=== PATIENT | female | born 1950 | race Caucasian/White ===

== ENCOUNTER 2017-09-09 08:46 | Inpatient (IN) | payer MEDICARE, MEDICAID ==
[2017-09-03 14:35] LABS: CLARITY,URINE CLEAR (Clear); COLOR,URINE YELLOW (Yellow); GLUCOSE, URINE NEGATIVE (Neg); KETONES,URINE NEGATIVE (Neg); LEUKOCYTE ESTERASE ,URINE NEGATIVE (Neg); NITRITES, URINE NEGATIVE (Neg); OCCULT BLOOD,URINE NEGATIVE (Neg); PROTEIN,URINE NEGATIVE (Neg); UROBILINOGEN,URINE 0.2 E.U/dL (0.2-1.0)
[2017-09-03 14:36] LABS: UA COLLECTION TYPE CLN CATCH MIDSTREAM
[2017-09-03 14:52] LABS: ALBUMIN 3.7 G/DL (3.4-5.0); ALKALINE PHOSPHATASE 123 IU/L (46-116); BLOOD UREA NITROGEN 25 MG/DL (7-18); BUN/CREATININE RATIO 31.3 (6.6-38.0); CALCIUM 9.1 MG/DL (8.5-10.1); CHLORIDE 107 MMOL/L (99-107); PRE OP ALT 40 U/L (30-65); PRE OP ANION GAP 4 (8-16); PRE OP AST 30 U/L (10-37); PRE OP BILIRUB, TOTAL 0.4 MG/DL (0.0-1.0); PRE OP GLUCOSE 80 MG/DL (70-104); PRE OP POTASSIUM 3.9 MMOL/L (3.4-5.1); PRE OP SODIUM 143 MMOL/L (135-145); TOTAL CARBON DIOXIDE 31.9 MMOL/L (24-32); TOTAL PROTEIN 7.3 G/DL (6.4-8.2); eGFR 72 ML/MIN
[2017-09-03 15:01] LABS: MONOCYTES # (AUTO) 0.6 X10'3 (0-0.9); RED BLOOD COUNT 4.51 X10'6 (4.20-5.60)
[2017-09-03 15:05] LABS: BASOPHILS # (AUTO) 0.2 X10'3 (0-0.2); BASOPHILS % (AUTO) 2.8 % (0-1); EOSINOPHILS # (AUTO) 0.2 X10'3 (0-0.9); EOSINOPHILS % (AUTO) 2.3 % (0-6); LYMPHOCYTES # (AUTO) 2.7 X10'3 (1.1-4.8); LYMPHOCYTES % (AUTO) 39.1 % (21-51); MEAN CORPUSCULAR HEMOGLOBIN 29.7 PG (27.0-31.0); MEAN CORPUSCULAR HGB CONC 33.9 % (33.0-36.5); MEAN CORPUSCULAR VOLUME 87.7 FL (78-98); MEAN PLATELET VOLUME 10.9 FL (7.4-10.4); MONOCYTES % (AUTO) 9.3 % (2-12); NEUTROPHILS # (AUTO) 3.2 X10'3 (1.8-7.7); NEUTROPHILS % (AUTO) 46.5 % (42-75); PRE OP HEMATOCRIT 39.5 % (35.0-45.0); PRE OP HEMOGLOBIN 13.4 g/dL (12.0-16.0); PRE OP PLATELET COUNT 177 X10'3 (140-440); RED CELL DISTRIBUTION WIDTH 14.7 % (11.5-14.5)
[2017-09-09] VITALS (21 sets, daily range): BP systolic 74–135; BP diastolic 39–80
[~2017-09-09] VITALS: Ht 157.5 cm; Wt 89.7 kg
[~2017-09-09 08:46] MED LIST: ACET-812 PO; ALEN35TA32 PO; CALC600T12 PO; CELE-193 PO; CHOL10002 PO; MARAJUANA INH; MULT-1085 PO; acetaminophen 325mg tablet PO ONE; cefazolin/dext.iso 2gm/50ml 50 ML IV ONE; celeCOXIB 100mg capsule PO ONE; famotidine 20mg tablet PO ONE; gabapentin 300mg capsule PO ONE; metoclopramide 5 mg/ml inj IV ONE; oxyCODONE SR 10mg (sust. release) tab PO ONE; ringers solution, lacted 1,000 ML IV SCH; tranexamic acid inj. 1,000 MG in normal saline 100ml IV soln 90 ML IV ONE; vancomycin inj 1,500 MG in normal saline 300ml IV soln IV ONE
[2017-09-09] MEDS ORDERED: LIDOcaine 1% (10mg/ml) 2ml vial ONE (10:00)
[2017-09-09] MEDS ORDERED: diphenhydrAMINE 25mg capsule PO PRN ×2 (10:10)
[2017-09-09] MEDS ORDERED: acetaminophen 325mg tablet PO PRN (10:10)
[2017-09-09] MEDS ORDERED: HYDROmorphone 1 mg/ml syringe IV PRN ×2 (10:10)
[2017-09-09] MEDS ORDERED: non-formulary drug (Alendronate Sodium 1 TAB) PO SCH (10:10)
[2017-09-09] MEDS ORDERED: magnesium hydroxide 30ml (MOM) UD suspension PO PRN (10:10)
[2017-09-09] MEDS ORDERED: bisacodyl 10mg suppository rectal RC PRN (10:10)
[2017-09-09] MEDS ORDERED: oxyCODONE/APAP 10/325mg tablet PO SCH (12:00)
[2017-09-09] MEDS ORDERED: ketorolac trometh. 30mg/ml inj. ONE (12:03)
[2017-09-09] MEDS ORDERED: cloNIDine hcl/PF 100mcg/ml inj ONE (12:04)
[2017-09-09] MEDS ORDERED: vancomycin 1,000mg inj ONE (12:04)
[2017-09-09] MEDS ORDERED: ROPIVAcaine 0.5% (5mg/ml) 30ml vial ONE ×2 (12:04→14:47)
[2017-09-09] MEDS ORDERED: epiNEPHrine 1 mg/ml inj ONE (12:04)
[2017-09-09] MEDS ORDERED: tranexamic acid inj. 1,000 MG in normal saline 100ml IV soln 90 ML IV ONE (12:15)
[2017-09-09] MEDS: gabapentin 300mg capsule PO SCH ×2 (13:00→22:21)
[2017-09-09] MEDS ORDERED: MIDAZolam 1mg/ml 10ml vial ONE (13:05)
[2017-09-09] MEDS ORDERED: MORPHINE SULFATE/PF 0.5 MG/ML 10ML AMPUL ONE (13:06)
[2017-09-09] MEDS ORDERED: propofol inj 20 ML IV ONE ×2 (13:44)
[2017-09-09] MEDS ORDERED: ringers solution, lacted 1,000 ML IV SCH (13:59)
[2017-09-09] MEDS ORDERED: meperidine/PF 50mg/ml syringe IV PRN ×3 (14:00)
[2017-09-09] MEDS ORDERED: morphine 2 MG/ML inj. syringe IV PRN ×2 (14:00)
[2017-09-09] MEDS ORDERED: proCHLORperazine 10 MG/2 ml inj IV PRN (14:00)
[2017-09-09] MEDS ORDERED: ondansetron/PF 4mg/2ml inj IV PRN ×2 (14:00→14:05)
[2017-09-09] MEDS ORDERED: naloxone 2mg/2ml inj 1.8 MG in normal saline 500ml IV soln 500 ML IV PRN (14:03)
[2017-09-09] MEDS ORDERED: diphenhydrAMINE 50 mg/ml inj IV PRN (14:05)
[2017-09-09] MEDS: ondansetron/PF 4mg/2ml inj IV PRN (18:37)
[2017-09-09] MEDS: potassium cl 20mEq in 1/2 NS 1,000 ML IV SCH (18:45)
[2017-09-09] MEDS: ascorbic acid 500mg tablet PO SCH (20:00)
[2017-09-09] MEDS: calcium carbonate 500mg tablet PO SCH (20:00)
[2017-09-09] MEDS: sennosides 8.6mg tablet PO SCH (21:00)
[2017-09-09] MEDS: cefazolin/dext.iso 2gm/50ml 50 ML IV SCH (22:14)
[2017-09-09] MEDS: oxyCODONE/APAP 10/325mg tablet PO PRN (22:21)
[2017-09-10] MEDS: potassium cl 20mEq in 1/2 NS 1,000 ML IV SCH ×4 (01:55→18:10)
[2017-09-10] MEDS: oxyCODONE/APAP 10/325mg tablet PO PRN ×6 (01:55→23:42)
[2017-09-10 02:30] VITALS: BP 97/46
[2017-09-10] MEDS: cefazolin/dext.iso 2gm/50ml 50 ML IV SCH (05:45)
[2017-09-10 06:00] VITALS: BP 92/62
[2017-09-10 06:07] LABS: BASOPHILS % (AUTO) 0.1 % (0-1); EOSINOPHILS # (AUTO) 0.1 X10'3 (0-0.9); EOSINOPHILS % (AUTO) 1.4 % (0-6); HEMATOCRIT 32.9 % (35.0-45.0); HEMOGLOBIN 11.1 g/dl (12.0-16.0); LYMPHOCYTES % (AUTO) 9.3 % (21-51); MEAN CORPUSCULAR HEMOGLOBIN 29.9 PG (27.0-31.0); MEAN CORPUSCULAR HGB CONC 33.8 % (33.0-36.5); MEAN CORPUSCULAR VOLUME 88.6 FL (78-98); MEAN PLATELET VOLUME 10.6 FL (7.4-10.4); MONOCYTES # (AUTO) 0.6 X10'3 (0-0.9); MONOCYTES % (AUTO) 6.2 % (2-12); NEUTROPHILS # (AUTO) 8.6 X10'3 (1.8-7.7); PLATELET COUNT 148 X10'3 (140-440); RED BLOOD COUNT 3.72 X10'6 (4.20-5.60); WHITE BLOOD COUNT 10.3 X10'3 (4.5-11.0)
[2017-09-10 06:24] LABS: ANION GAP 8 (8-16); CHLORIDE 108 MMOL/L (99-107); POTASSIUM 4.8 MMOL/L (3.5-5.1); SODIUM 143 MMOL/L (135-145); TOTAL CARBON DIOXIDE 26.7 MMOL/L (24-32)
[2017-09-10 06:32] LABS: LARGE PLATELETS FEW; PLATELET ESTIMATE NORMAL
[2017-09-10] MEDS: multivitamins, therapeutics tablet PO SCH (08:00)
[2017-09-10] MEDS ORDERED: vitamin D (cholecalciferol) 1,000 unit tablet PO SCH (08:00)
[2017-09-10] MEDS: calcium carbonate 500mg tablet PO SCH ×2 (08:00→23:34)
[2017-09-10] MEDS: ascorbic acid 500mg tablet PO SCH ×2 (08:00→23:34)
[2017-09-10] MEDS: gabapentin 300mg capsule PO SCH ×3 (08:00→23:33)
[2017-09-10] MEDS: ondansetron/PF 4mg/2ml inj IV PRN (08:49)
[2017-09-10 10:00] VITALS: BP 128/59
[2017-09-10] MEDS: celeCOXIB 100mg capsule PO SCH (12:09)
[2017-09-10] MEDS: aspirin 325mg tablet PO SCH (14:15)
[2017-09-10 19:00] VITALS: BP 141/71
[2017-09-10] MEDS: sennosides 8.6mg tablet PO SCH (20:15)
[2017-09-10 22:00] VITALS: BP 141/65
[2017-09-11] MEDS: potassium cl 20mEq in 1/2 NS 1,000 ML IV SCH (02:10)
[2017-09-11] MEDS: oxyCODONE/APAP 10/325mg tablet PO PRN ×3 (03:46→21:02)
[2017-09-11 05:59] LABS: BASOPHILS % (AUTO) 0.3 % (0-1); EOSINOPHILS # (AUTO) 0.1 X10'3 (0-0.9); EOSINOPHILS % (AUTO) 1.5 % (0-6); HEMATOCRIT 31.9 % (35.0-45.0); HEMOGLOBIN 11.1 g/dl (12.0-16.0); LYMPHOCYTES # (AUTO) 1.6 X10'3 (1.1-4.8); LYMPHOCYTES % (AUTO) 17.6 % (21-51); MEAN CORPUSCULAR HEMOGLOBIN 30.3 PG (27.0-31.0); MEAN CORPUSCULAR HGB CONC 34.7 % (33.0-36.5); MEAN CORPUSCULAR VOLUME 87.2 FL (78-98); MEAN PLATELET VOLUME 10.3 FL (7.4-10.4); MONOCYTES # (AUTO) 1.1 X10'3 (0-0.9); MONOCYTES % (AUTO) 12.1 % (2-12); NEUTROPHILS # (AUTO) 6.1 X10'3 (1.8-7.7); NEUTROPHILS % (AUTO) 68.5 % (42-75); PLATELET COUNT 125 X10'3 (140-440); RED BLOOD COUNT 3.66 X10'6 (4.20-5.60); RED CELL DISTRIBUTION WIDTH 14.7 % (11.5-14.5); WHITE BLOOD COUNT 8.9 X10'3 (4.5-11.0)
[2017-09-11 06:00] VITALS: BP 158/65
[2017-09-11] MEDS: celeCOXIB 100mg capsule PO SCH (07:44)
[2017-09-11] MEDS: multivitamins, therapeutics tablet PO SCH (07:44)
[2017-09-11] MEDS: ascorbic acid 500mg tablet PO SCH ×2 (07:44→21:01)
[2017-09-11] MEDS: aspirin 325mg tablet PO SCH (07:44)
[2017-09-11] MEDS: gabapentin 300mg capsule PO SCH ×3 (07:44→21:02)
[2017-09-11] MEDS ORDERED: calcium carbonate 500mg tablet PO SCH (07:48)
[2017-09-11] MEDS ORDERED: vitamin D (cholecalciferol) 1,000 unit tablet PO SCH (07:49)
[2017-09-11 10:00] VITALS: BP 159/74
[2017-09-11 18:00] VITALS: BP 150/84
[2017-09-11] MEDS: sennosides 8.6mg tablet PO SCH (21:03)
[2017-09-11 22:00] VITALS: BP 148/67
[2017-09-12] MEDS: oxyCODONE/APAP 10/325mg tablet PO PRN ×2 (02:42→07:34)
[2017-09-12 05:00] VITALS: BP 155/84
[2017-09-12 05:44] LABS: BASOPHILS % (AUTO) 0.3 % (0-1); EOSINOPHILS # (AUTO) 0.1 X10'3 (0-0.9); EOSINOPHILS % (AUTO) 1.5 % (0-6); HEMATOCRIT 32.5 % (35.0-45.0); HEMOGLOBIN 10.9 g/dl (12.0-16.0); LYMPHOCYTES # (AUTO) 1.5 X10'3 (1.1-4.8); LYMPHOCYTES % (AUTO) 16.7 % (21-51); MEAN CORPUSCULAR HEMOGLOBIN 29.8 PG (27.0-31.0); MEAN CORPUSCULAR HGB CONC 33.7 % (33.0-36.5); MEAN CORPUSCULAR VOLUME 88.5 FL (78-98); MEAN PLATELET VOLUME 10.5 FL (7.4-10.4); MONOCYTES # (AUTO) 1.3 X10'3 (0-0.9); MONOCYTES % (AUTO) 14.6 % (2-12); NEUTROPHILS % (AUTO) 66.9 % (42-75); PLATELET COUNT 137 X10'3 (140-440); RED BLOOD COUNT 3.67 X10'6 (4.20-5.60)
[2017-09-12] MEDS ORDERED: ASPI-1 PO (06:37)
[2017-09-12 06:50] VITALS: BP 150/84
[2017-09-12] MEDS: celeCOXIB 100mg capsule PO SCH (07:32)
[2017-09-12] MEDS: gabapentin 300mg capsule PO SCH (07:33)
[2017-09-12] MEDS: aspirin 325mg tablet PO SCH (07:34)
[2017-09-12] MEDS: ascorbic acid 500mg tablet PO SCH (07:34)
[2017-09-12] MEDS: multivitamins, therapeutics tablet PO SCH (07:34)
== END 2017-09-12 10:45 | disposition home or self-care (01) | DRG 470 ==
LOC: PAS IN 08:46 → EDSTATUS 13:15 → ORTHO 4S 17:14
PROVIDERS: ADMIT Orthopaedic Surgery; ATTEND Orthopaedic Surgery
PROC: 3E0T3BZ Introduction of Anesthetic Agent into Peripheral Nerves and Plexi, Percutaneous Approach (ICD-10-PCS; 2017-09-09)
PROC: 0SRD0J9 Replacement of Left Knee Joint with Synthetic Substitute, Cemented, Open Approach (ICD-10-PCS; principal; 2017-09-09 12:53)
DX: M17.32 Unilateral post-traumatic osteoarthritis, left knee (principal); D62 Acute posthemorrhagic anemia; M81.0 Age-related osteoporosis without current pathological fracture; Z96.641 Presence of right artificial hip joint; B19.20 Unspecified viral hepatitis C without hepatic coma; Z98.51 Tubal ligation status; Z90.49 Acquired absence of other specified parts of digestive tract; Z90.710 Acquired absence of both cervix and uterus; Z88.5 Allergy status to narcotic agent; Z91.048 Other nonmedicinal substance allergy status; Z79.899 Other long term (current) drug therapy; Z87.891 Personal history of nicotine dependence; Z82.3 Family history of stroke
CPT/HCPCS: 36415; 73560; 80051; 80053; 81003; 85025; 85610; 85730; 86885; 86900; 86901; 87070; 97110; 97116; 97162; 97530; A6255; A6455; A7000; C1713; C1758; C1776; J0171; J0690; J0735; J1885; J2250; J2274; J2405; J2704; J2765; J2795; J3370; J3490; J7030; J7120